=== PATIENT | male | born 1940 | race Caucasian/White ===

== ENCOUNTER 2016-06-04 23:25 | Emergency (ER) | payer OTHER ==
--- NOTE | ~2016-06-04 | CR72 ---
[facility] A Service of [facility] RADIOLOGY TEXT RESULTS PATIENT: SKYLA AGUILLON SR LOCATION: SED : 44 UNIT #: [id number] AGE: [address]: Marco Ibarra MD SEX: M ORDER DR: [id number] [place] [id number] E MR#: [id number] Acc #: [id number] NAME: SKYLA AGUILLON : 1940 SEX: M STUDY DATE/TIME: 06/05/2016 0:13 UNIT: SED ROOM: STUDY DESCRIPTION: CR Chest Single View Portable Attending Physician: Marco Ibarra M.D. Ordering Physician: Marco Ibarra M.D. Primary Care Physician: Geo Waller M.D. MEDICAL IMAGING REPORT This report is preliminary unless electronic signature is present. EXAM Portable chest INDICATIONS Shortness of air, hand swelling, numbness in feet, cough, congestion tonight 06/05. COMPARISON 03/05/2015. FINDINGS Today's portable view of the chest shows very mild interstitial prominence which is stable from 03/05/2015. No focal infiltrates are identified and there are no effusions. The heart size is upper limits of normal. The numerous metal pellets in the right shoulder region are stable. Dictated by... Rayray Vicente M.D. THIS IS AN ELECTRONICALLY VERIFIED REPORT Rayray Vicente M.D. at 06/05/2016 5:04 AM FEL/psc TD: 06/05/2016 01:53 JOB #: [id number] MEDICAL IMAGING REPORT Page 1 of 1
--- NOTE | ~2016-06-04 | EKG ---
PATIENT: SKYLA AGUILLON UNIT #: [id number] Ventricular Rate: 76 BPM Atrial Rate: 76 BPM P-R Interval: 226 ms QRS Duration: 100 ms Q-T Interval: 394 ms QTC Calculation(Bezet): 443 ms P Breeding: 5 degrees Calculated R Breeding: -8 degrees Calculated T Breeding: 66 degrees Diagnosis Line: Sinus rhythm with 1st degree A-V block Diagnosis Line: Minimal voltage criteria for LVH, may be normal Diagnosis Line: variant Diagnosis Line: Poor R wave progression questionable lead position Diagnosis Line: or body habitus Diagnosis Line: Abnormal ECG Diagnosis Line: When compared with ECG of 05-MAR-2015 01:44, Diagnosis Line: Premature atrial complexes are no longer Present Diagnosis Line: VT interval has increased Diagnosis Line: Septal infarct is now Present Diagnosis Line: Confirmed by MYESHA THOMAS MD ([id number]) on 06/11/2016 Diagnosis Line: 11:54:18 AM INTERPRETING MD: WILLIAM JACKSON
[~2016-06-04 23:25] MED LIST: ACTOS30 MG; ACTOS30 MG PO; AMITIZA8 MCG PO; AMLODIPINE BESYL5 MG PO; ASPIRIN81 M1; ASPIRIN81 M2 PO; AVANDIA8 MG; CINNAMON ALPHA1 EACH; CLARITIN10 M2; COZAAR25 MG; DELTASONE20 MG; DEMADEX10 MG; DONEPEZIL HCL10 MG; EPIPEN0.3 MG/0.1 IM; FAMOTIDINE PO; FERROUS SULFATE1 TAB PO; FLOMAX0.4 M1; GLEEVEC100 MG; GLEEVEC100 MG PO; GLIPIZIDE5 MG/BOTTL; GLUCOTROL10 MG PO; HUMULIN 70/30 V10 ML; HUMULIN R100 U/ML SUBQ; HYDRALAZINE HCL50 MG PO; LANTUS INSULIN; LEVAQUIN750 MG PO; LIPITOR40 MG; LISINOPRIL10 MG PO; LORTAB 7.5-5001 TAB PO; LYRICA200 MG; M.V.I. ADULT10 ML; METFORMIN HCL500 M1; METOPROLOL SUCC50 MG; MICRONASE5 M2 PO; NEURONTIN600 MG PO; NIASPAN PO; NILSTAT1 ML PO; NOVOLIN 70/30 V10 M1 SUBQ; ONGLYZA5 MG PO; OXAZEPAM15 MG PO; OXYCODON HCL-AP1 TA1; PHENERGAN25 MG PO; PREDNISONE PO; SENNA8.6 M2 PO; SIMVASTATIN40 MG; SIMVASTATIN40 MG PO; SYMBICORT INH; ULORIC80 MG; VITAL-D RX TABL1 TAB; VITAMIN C500 MG/15; WELCHOL625 MG PO; ZESTRIL40 MG PO; [UNRECOGNIZED DRUG - OTHER] PO; [UNRECOGNIZED DRUG - REMARK]
[2016-06-04 23:53] LABS: POC - CKMB 3.9 ng/mL (0.0-7.9); POC - TROPONIN <0.05 ng/mL (<=0.05)
[2016-06-05 00:15] LABS: BASOPHIL# 0.1 X10e3 (0-0.3); EOSINOPHIL# 0.3 X10e3 (0-0.7); EOSINOPHIL% 4.2 % (0.0-7.0); HEMATOCRIT 28.4 % (38.0-50.0); HEMOGLOBIN 9.5 gm/dL (13.0-16.0); INR 0.9; LYMPHOCYTE# 1.8 X10e3 (1.0-3.5); LYMPHOCYTE% 26.6 % (17.0-45.0); MEAN CELL VOLUME 97.7 FL (83-96); MEAN CORPUSCULAR HEMOGLOBIN 32.7 PG (28-34); MEAN CORPUSCULAR HGB CONC 33.5 g/dL (30-36); MEAN PLATELET VOLUME 9.2 FL (6.5-11.5); MONOCYTE# 0.8 X10e3 (0-1.0); MONOCYTE% 11.8 % (3.0-12.0); NEUTROPHIL# 3.8 X10e3 (1.5-7.1); NEUTROPHIL% 56.4 % (40-75); PLATELET COUNT 166 X10e3 (140-420); PROTHROMBIN TIME (PATIENT) 9.8 SECONDS (9.5-12.4); RED CELL DISTRIBUTION WIDTH 13.8 % (11.0-15.5); WHITE BLOOD COUNT 6.7 X10e3 (4.0-10.5)
[2016-06-05 00:16] LABS: DIFF IND NO
[2016-06-05 00:23] LABS: PARTIAL THROMBOPLASTIN TIME 27.3 SECONDS (25.6-38.1)
[2016-06-05 00:24] LABS: BILIRUBIN, DIRECT 0.1 mg/dL (0.0-0.2); BILIRUBIN,INDIRECT 0.2 mg/dL (0.0-0.9); BILIRUBIN,TOTAL 0.3 mg/dL (0.2-2.0); BUN/CREATININE RATIO 15.66; CALCIUM SERUM 7.9 mg/dL (8.4-10.2); GLOM FILT RATE Estimated 19.7 mL/min (>60); PROTEIN TOTAL SERUM 6.4 g/dL (6.0-8.3)
[2016-06-05 03:03] LABS: POC - CKMB 2.5 ng/mL (0.0-7.9); POC - TROPONIN <0.05 ng/mL (<=0.05)
== END 2016-06-05 05:23 ==
LOC: SED 23:25
PROVIDERS: Emergency Medicine
DX: I16.1 Hypertensive emergency (principal); R06.00 Dyspnea, unspecified; F41.9 Anxiety disorder, unspecified; Z88.0 Allergy status to penicillin; Z88.1 Allergy status to other antibiotic agents; Z88.6 Allergy status to analgesic agent
CPT/HCPCS: 36415; 71010; 80048; 80076; 82553; 83880; 84484; 85025; 85610; 85730; 93005; 96374; 96375; 96376; 99291; J0360; J1940